=== PATIENT | female | born 1995 | race Caucasian/White ===

== ENCOUNTER 2022-01-27 18:31 | Emergency (ER) | payer OTHER, SELFPAY ==
[2022-01-27 20:36] VITALS: BP 142/73; PULSE 90; RESP 18; TEMP 37.1; O2SAT 99; BMI 67.6
[2022-01-27 20:55] LABS: MANUAL DIFF FLAG NO
[2022-01-27 20:57] LABS: Basophils Percent Auto 0.3 % (0-2); Eosinophils Absolute Auto 0.1 X10*3/uL (0.0-0.4); Eosinophils Percent Auto 1.1 % (0-4); Hematocrit 40.9 % (37.0-47.0); Hemoglobin 13.3 g/dl (12.0-16.0); Imm Gran Abs Auto 0.02 X10*3/uL (0.00-0.03); Imm Gran Pct Auto 0.3 % (0.0-0.4); Lymphocytes Absolute Auto 2.3 X10*3/uL (1.2-4.9); Lymphocytes Percent Auto 30.6 % (20-40); Mean Corpuscular HGB Conc 32.5 g/dl (31.0-35.0); Mean Corpuscular Hemoglobin 26.6 pg (27.0-33.0); Mean Corpuscular Volume 81.8 fL (80.0-98.0); Mean Platelet Volume 9.2 fL (9.4-12.3); Monocytes Absolute Auto 0.4 X10*3/uL (0.1-1.2); Monocytes Percent Auto 5.5 % (2-11); Neutrophils Absolute Auto 4.7 x10*3/uL (2.0-8.3); Neutrophils Percent Auto 62.2 % (45-73); Platelet Count 303 X10*3/uL (160-400); White Blood Count 7.5 X10*3/uL (4.8-10.8)
[2022-01-27 21:16] LABS: Anion Gap 15 (12-20); Blood Urea Nitrogen 9 mg/dL (9-16); Calcium 9.4 mg/dL (8.4-10.2); Carbon Dioxide 24 mmol/L (22-29); Chloride 102 mmol/L (96-108); Creatinine Clr Calc Pharmacy 158.8; Estimated Glomerular Filt Rate > 60; Glucose Random 147 mg/dL (60-115); Potassium 4.1 mmol/L (3.3-5.1); Sodium 137 mmol/L (135-145)
[2022-01-28 01:06] VITALS: BP 144/74; PULSE 87; RESP 18; TEMP 36.8; O2SAT 99
--- NOTE | 2022-01-28 01:12 | ED.GENADULT ---
HPI - General Adult General Chief complaint: Extremity Problem Stated complaint: facial drooping Time Seen by Provider: 01/28/22 01:03 Source: patient Mode of arrival: ambulatory History of Present Illness HPI narrative: 26F with worsening left sided fsacial droop and numb sensation since yesterday. Patient noticed that eye will not close all the way , she cannot lift eyebrow as high. She denies any recent illnesses, fevers, chills, tick exposure. Related Data Previous Rx's Medication Instructions Recorded prednisone 20 mg tablet 60 mg PO DAILY 6 days #18 tabs 01/28/22 Allergies Allergy/AdvReac Type Severity Reaction Status Date / Time No Known Allergies Allergy Verified 01/27/22 20:42 Review of Systems Review of Systems: Pertinent positives and negatives as per HPI and 10pt ROS is otherwise negative. [facility] Past Medical History Source: nursing notes reviewed Social History Social History Advance Directives: No Patient : No Physical Exam ED Vital Signs: Vital Signs - 24 hr 01/27/22 20:36 01/28/22 01:06 Temperature 98.7 F 98.2 F Pulse Rate 90 87 Respiratory Rate 18 18 Blood Pressure 142/73 H 144/74 H Pulse Oximetry 99 99 Oxygen Delivery Method Room Air Room Air BMI result Body Mass Index 67.6 VS Reviewed GEN: Well-nourished, NAD HEAD: NC/AT EYE: PERRLA, EOMI, no nystagmus PULM: CTAB, no w/r/r, SpO2-99% CVS: RRR, no murmur ABD: soft, NT/ND SKIN: pink, warm, dry NEURO: A&O x4, STrength and sensation grossly intact x4, LEFT side facial droop involving eyebrow/forehead/cheek/mouth Course Course Course Narrative: 26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 Will start patient on steroid treatment and follow up with PCP. Medical Decision Making Lab Data Result diagrams: 01/27/22 20:52 01/27/22 20:52 Labs: Lab Results 01/27/22 01/27/22 Range/Units 20:52 20:52 WBC 7.5 (4.8-10.8) X10*3/uL RBC 5.00 (4.20-5.50) X10*6/uL Hgb 13.3 (12.0-16.0) g/dl Hct 40.9 (37.0-47.0) % MCV 81.8 (80.0-98.0) fL MCH 26.6 L (27.0-33.0) pg MCHC 32.5 (31.0-35.0) g/dl RDW 14.0 (11.0-16.0) % Plt Count 303 (160-400) X10*3/uL MPV 9.2 L (9.4-12.3) fL Immature Gran % (Auto) 0.3 (0.0-0.4) % Neut % (Auto) 62.2 (45-73) % Lymph % (Auto) 30.6 (20-40) % [place] % (Auto) 5.5 (2-11) % Eos % (Auto) 1.1 (0-4) % Baso % (Auto) 0.3 (0-2) % Lymph # (Auto) 2.3 (1.2-4.9) X10*3/uL [place] # (Auto) 0.4 (0.1-1.2) X10*3/uL Eos # (Auto) 0.1 (0.0-0.4) X10*3/uL Baso # (Auto) 0.0 (0.0-0.2) X10*3/uL Abs Immat Gran (auto) 0.02 (0.00-0.03) X10*3/uL Absolute Neuts (auto) 4.7 (2.0-8.3) x10*3/uL Absolute Nucleated RBC 0.000 (0.0-0.012) X10*3/uL Nucleated RBC % (auto) 0.0 (0.0-0.2) /100WBC Sodium 137 (135-145) mmol/L Potassium 4.1 (3.3-5.1) mmol/L Chloride 102 (96-108) mmol/L Carbon Dioxide 24 (22-29) mmol/L Anion Gap 15 (12-20) BUN 9 (9-16) mg/dL Creatinine 0.77 (0.5-1.4) mg/dL Estim Creat Clear Calc 158.8 Estimated GFR > 60 Random Glucose 147 H (60-115) mg/dL Calcium 9.4 (8.4-10.2) mg/dL Discharge Plan Discharge Clinical Impression: Koenig's palsy Patient Disposition: Home, Self-Care Instructions: Koenig Palsy (ED) Additional Instructions: EYE PROTECTION - OTC artifical tears every hour while awake - OTC ophthalmic ointment at night with taping eye shut - Protective glasses during the day to protect from dust, etc STEROIDS Prednisone 60mg, daily x1 week Follow up with an eye doctor to ensure no injury to the eye. Prescriptions: New prednisone 20 mg tablet 60 mg PO DAILY 6 Days Qty: 18 0RF Rx Instructions: Start
[2022-01-28] MEDS: predniSONE 20 MG TABLET 60 MG PO (01:49)
== END 2022-01-28 01:54 | disposition home or self-care (01) ==
PROVIDERS: Emergency Provider Student in an Organized Health Care Education/Training Program
DX: G51.0 Bell's palsy (principal); Z79.899 Other long term (current) drug therapy
CPT/HCPCS: 36415; 80048; 85025; 99283; 99284